=== PATIENT | female | born 1990 | race Caucasian/White ===

== ENCOUNTER 2017-12-16 01:29 | Emergency (ER) | payer OTHER, SELFPAY ==
--- NOTE | 2017-12-16 01:37 | ED_ITS ---
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 This reported by the patient that she did consume alcohol last evening. She reported drinking 7 beers. She did state that she took 100 mg of trazodone which is less than her normal 150 mg that she takes to sleep. She states that she cannot sleep at night without the trazodone. Despite drinking she still cannot fall asleep but she states that she took less than her normal dose. She states that she was brought here by members of the command after her she reports that they attempted to contact her earlier in the evening however she was asleep and since the could not reach her they came to find her and brought her here. Patient states she does have a history of PTSD. She states that she occasionally has thoughts of suicide. She states she has tried to hurt herself in the past. She states that currently she is not suicidal. She states she did not take the trazodone in the alcohol to try to kill herself. She states that she does not feel like she needs admitted to the hospital. She has never been admitted to the hospital in the past. She states that she does feel depressed but this is not new for her. She does live at home alone. She states she does feel safe at home. Related Data Allergies Allergy/AdvReac Type Severity Reaction Status Date / Time No Known Drug Allergies Allergy Verified 12/16/17 01:39 Review of Systems Constitutional Denies headache(s) ENT Ears, Nose, Mouth, and Throat: Denies headache(s) Cardiovascular Denies chest pain and Denies dyspnea Respiratory Denies dyspnea Gastrointestinal Gastrointestinal: Denies abdominal pain Musculoskeletal Denies myalgias and Denies arthralgias Integumentary/Breasts Denies rash Neurologic Denies confusion and Denies headache(s) Psychiatric Denies anxiety, Denies confusion, Reports depression, Denies irritability and Denies suicidal ideation Hematologic/Lymphatic Denies easy bleeding [facility] Medical History PTSD (post-traumatic stress disorder) (Acute) Surgical History No pertinent past surgical history (Acute) Social History Smoking Status: Never smoker Exam Initial Vital Signs Initial Vital Signs: Vital Signs Pulse Rate 88 12/16/17 01:39 Respiratory Rate 14 12/16/17 01:39 Blood Pressure 124/82 H 12/16/17 01:39 Pulse Oximetry 99 12/16/17 01:39 Const General: cooperative, healthy appearing, comfortable, well developed, well groomed and No acute distress Orientation: alert, awake and oriented x3 HENMT Head: normal to inspection and normocephalic Resp Effort & Inspection: normal respiratory effort Skin Lesions: no lesions Rashes: no rashes Neuro General: alert, awake and oriented x3 Cognition: normal cognition Speech: speech normal Gait: normal gait Motor: muscle tone normal throughout Extrem General: normal to inspection and full ROM Psych Appearance: grossly normal and well kempt Mental Status: mental status grossly normal Mood: congruent mood Affect: normal affect Attitude: cooperative Thought Process: normal Thought Content: normal Judgment: judgment good Scores GCS [place] coma scale eye opening: Spontaneous [place] coma scale verbal response: Orientated [place] coma scale motor response: Obey commands [place] coma scale total score: 15 Course Vital Signs - 8 hr 12/16/17 01:39 Pulse Rate 88 Respiratory Rate 14 Blood Pressure 124/82 H Pulse Oximetry 99 Medical Decision Making [facility] Narrative Medical decision making narrative: Patient was alert and oriented x3. Had a GCS of 15. She did state that she drank alcohol last evening but states she only took 100 mg of her trazodone. She states that she frequently has thoughts of hurting herself but is not currently having those thoughts. She states she is currently depressed. Does have a follow up with her mental health provider next Tuesday. She stated that she did not need admitted to the hospital. She denied any other toxic ingestions. My opinion had the capacity to make decisions. I was able to talk with 2 members of her command that brought her in this evening. They stated that for some time now she has expressed and exhibited depressive like symptoms. They state that they were concerned tonight because they thought that she took more trazodone than what she was admitting to. Seeing how the patient is alert and oriented x3 and is not expressing any current suicidal thoughts and states that she feels safe at home patient does not meet criteria to be involuntarily admitted to the hospital. Patient states she does not feel like she needs admitted to the hospital. After discussion with the patient and members of her command we will discharge the patient under her command supervision to be observed overnight and then they were instructed that she needed to call the mental health department tomorrow for follow-up. The patient was instructed that she should not take the trazodone and drink alcohol at the same time. She was instructed that she could return to the emergency department at any time if she felt like she needed to. She expressed understanding and agreement with plan. Her command members also expressed understanding and agreement. Discharge Plan Departure Patient Disposition: Home Clinical Impression: Alcoholic intoxication, Post traumatic stress disorder, Adjustment disorder Discharge Date/Time: 12/16/17 02:14 Instructions: Depression, Adjustment Disorder Activity Restrictions/Additional Instructions: Your being released to your LPO and division officer. No driving for the next 24 hr or in the future if you partake and intoxicating substances. You are to be watched tonight by your command. Highly recommend that you be seen by mental health [place] [employer] [place] tomorrow. You may return to the emergency department at any point for new or worsening symptoms.
[2017-12-16 01:39] VITALS: BP 124/82; PULSE 88; RESP 14; O2SAT 99; BMI 23.1
== END 2017-12-16 02:14 | disposition home or self-care (01) ==
PROVIDERS: Emergency Provider Emergency Medicine
DX: F10.929 Alcohol use, unspecified with intoxication, unspecified (principal); F43.10 Post-traumatic stress disorder, unspecified
CPT/HCPCS: 99282

== ENCOUNTER 2017-12-17 20:31 | Emergency (ER) | payer OTHER, SELFPAY ==
[2017-12-17 20:39] VITALS: BP 146/83; PULSE 99; RESP 18; TEMP 37.1; O2SAT 100; BMI 24.0
--- NOTE | 2017-12-17 20:48 | ED.ANXIETY ---
HPI - Anxiety General Chief Complaint: Anxiety Stated Complaint: PANIC ATTACK Time Seen by Provider: 12/17/17 20:41 Source: patient Mode of arrival: ambulatory Limitations: no limitations History of Present Illness HPI narrative: Patient is a 27-year-old female who I evaluated here in the emergency department a couple days ago after being brought in by her command for concerns of alcohol and trazodone overdose. At that time patient was discharged home with her command. Patient states she did follow up with her mental health provider the next day and the decision was made at that time for her to stay with a friend. This friend is with her today in the emergency department. Patient and the friend states that they were having a good day today. They state that they were at [employer] when the patient says that she had a sudden onset of panic attacks. She states that she has had panic attacks in the past. This feels like prior panic attack. She denies any alcohol or drug use. Does not have any medication for panic attacks. Came into the emergency department for evaluation. Related Data Previous Rx's Medication Instructions Recorded lorazepam [Ativan] 1 mg PO BID-TID PRN #10 tab 12/17/17 Allergies Allergy/AdvReac Type Severity Reaction Status Date / Time No Known Drug Allergies Allergy Verified 12/16/17 01:39 Review of Systems Constitutional Denies fatigue and Denies fever(s) Cardiovascular Denies chest pain and Denies dyspnea Respiratory Denies dyspnea Gastrointestinal Gastrointestinal: Reports abdominal pain (She does report bilateral lower abdominal pain which she states that she gets because of muscle tension during her anxiety), Denies diarrhea, Denies nausea and Denies vomiting Genitourinary Denies dysuria Musculoskeletal Reports back pain (Lower back pain) Integumentary/Breasts Denies lesions and Denies rash Psychiatric Reports anxiety, Reports depression, Reports panic attacks and Denies homicidal ideation Endocrine Denies fatigue [facility] Medical History Anxiety (Acute) PTSD (post-traumatic stress disorder) (Acute) Surgical History No pertinent past surgical history (Acute) Social History Smoking Status: Never smoker Exam Initial Vital Signs Initial Vital Signs: Vital Signs Temperature 98.7 F 12/17/17 20:39 Pulse Rate 99 H 12/17/17 20:39 Respiratory Rate 18 12/17/17 20:39 Blood Pressure 146/83 H 12/17/17 20:39 Pulse Oximetry 100 12/17/17 20:39 Const General: cooperative, healthy appearing, well developed, well groomed and No acute distress Orientation: alert, awake and oriented x3 Resp Effort & Inspection: normal respiratory effort GI Inspection: non-distended Palpation: soft, No firm and tender (Bilateral lower abdominal tenderness without rebound or guarding) Back/Spine/Pelvis Other: Bilateral lower lumbar tenderness without step-off deformity Skin Lesions: no lesions Rashes: no rashes Neuro General: alert, awake and oriented x3 Extrem General: capillary refill normal Psych Appearance: grossly normal and well kempt Course Orders Ordered: Discontinued Medications Ibuprofen (Advil) 800 mg PO NOW ONE Stop: 12/17/17 22:09 Last Admin: 12/17/17 22:18 Dose: 800 mg Lorazepam (Ativan) 1 mg PO NOW ONE Stop: 12/17/17 20:49 Last Admin: 12/17/17 20:54 Dose: 1 mg Lorazepam (Ativan) 1 mg PO NOW ONE Stop: 12/17/17 22:09 Last Admin: 12/17/17 22:18 Dose: 1 mg Ondansetron HCl (Zofran Odt) 4 mg PO NOW ONE Stop: 12/17/17 21:18 Last Admin: 12/17/17 21:20 Dose: 4 mg Vital Signs - 8 hr 12/17/17 20:39 12/17/17 22:21 12/17/17 22:59 Temperature 98.7 F 98.2 F Pulse Rate 99 H 78 62 Respiratory Rate 18 16 16 Blood Pressure 146/83 H 125/76 H Blood Pressure [Left Arm] 122/67 H Pulse Oximetry 100 98 97 MDM - Anxiety MDM Narrative Medical decision making narrative: Patient received 2 doses of Ativan here in the emergency department and she states that it improved her anxiety. She has with her friend and the plan is for her to be discharged with her friend in a follow up with her mental health department on Tuesday morning. Patient is taking her other medications. Patient agrees that her lower abdominal pain and lower back pain as the result of muscle tension secondary to the panic attack. Will hold on further workup about for right now. She was given an anti-inflammatory here in the ER. Will send home with a short prescription for the Ativan. She was given return precautions. She expressed understanding and agreement with plan. Discharge Plan Departure Patient Disposition: Home Clinical Impression: Acute anxiety Discharge Date/Time: 12/17/17 23:00 Interventions: ED Discharge Assessment Last Done: 12/17/17 22:59 Instructions: Anxiety Disorders, Anxiety and Panic Attacks (Alternative Therapy) Activity Restrictions/Additional Instructions: Recommend no alcohol intake. Take the prescription that you were given tonight as directed. Follow all of the plans that you have set up with your mental health provider and staying with her friend over the weekend. You may return to the emergency department at any point for new or worsening symptoms Prescriptions: New lorazepam [Ativan] 1 mg tablet 1 mg PO BID-TID PRN (Reason: anxiety) Qty: 10 RF: 0
[2017-12-17] MEDS: LORazepam 1 MG TABLET PO ×2 (20:54→22:18)
[2017-12-17] MEDS: ONDANSETRON 4 MG ODT PO (21:20)
--- NOTE | 2017-12-17 21:20 | PC.NURSE ---
Pt still nauseous. Provider aware. administered ODT Zofran, per order.
[2017-12-17] MEDS: IBUPROFEN 400 MG TABLET 800 MG PO (22:18)
[2017-12-17 22:21] VITALS: BP 122/67; PULSE 78; RESP 16; O2SAT 98
--- NOTE | 2017-12-17 22:22 | PC.NURSE ---
Pt reports back pain 6/10 and still feeling really tense. Pt medicated per order with ativan and ibuprofen. Placed on continuous O2 sat monitor for safety.
[2017-12-17 22:59] VITALS: BP 125/76; PULSE 62; RESP 16; TEMP 36.8; O2SAT 97
== END 2017-12-17 23:00 | disposition home or self-care (01) ==
PROVIDERS: Emergency Provider Emergency Medicine
DX: F41.9 Anxiety disorder, unspecified (principal)
CPT/HCPCS: 99282; 99283

== ENCOUNTER 2018-04-16 18:35 | Emergency (ER) | payer OTHER, SELFPAY ==
[2018-04-16 18:37] VITALS: BP 122/75; PULSE 96; RESP 18; TEMP 37.1; O2SAT 100; BMI 24.9
[2018-04-16] MEDS: LORazepam 0.5 MG TABLET 1 MG PO ×2 (18:53→19:41)
[2018-04-16] MEDS: IBUPROFEN 400 MG TABLET PO (19:06)
--- NOTE | 2018-04-16 19:06 | ED_ITS ---
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 She is on multiple medications for PTSD. She is currently in the process of been medically boarded out of the [place]. She is here tonight due to an exacerbation of the PTSD. She feels anxiety. This is exacerbated by abdominal cramping. She has ovarian cysts and recently had a menstrual cycle, she is used to the current abdominal cramping she is experiencing. She has no associated nausea, vomiting or dysuria. With anxiety, she is somewhat tearful. She is having flashbacks to the combat event that is recurrent memory and her PTSD. She is unsure why the flashbacks exacerbated today. However, she does agree that the holidays may be a feature. She went home to [place] for [facility] but will not be going home for [place]. There is also an anniversary of a negative event in her life coming up soon. She did not elaborate on the event, but it seems like it is a big deal. She denies suicidal ideation or homicidal ideation. She is eating and drinking well. She sees a therapist on the [employer] [place] once weekly. Related Data Previous Rx's Medication Instructions Recorded lorazepam [Ativan] 1 mg PO BID-TID PRN #10 tab 12/17/17 Allergies Allergy/AdvReac Type Severity Reaction Status Date / Time No Known Drug Allergies Allergy Verified 04/16/18 18:48 Review of Systems Review of Systems All systems reviewed & are unremarkable except as noted in HPI and below Constitutional Denies chills, Denies fever(s), Denies lethargy and Denies weakness ENT Ears, Nose, Mouth, and Throat: Denies change in voice, Denies dizziness, Denies nasal congestion and Denies sore throat Cardiovascular Denies chest pain, Denies irregular heart rhythm, Denies lightheadedness, Denies palpitations, Denies dyspnea, Denies dyspnea on exertion and Denies orthopnea Respiratory Denies cough, Denies dyspnea, Denies dyspnea on exertion and Denies wheezing Gastrointestinal Gastrointestinal: Denies change in bowel habits, Denies diarrhea, Reports nausea , Denies vomiting and Reports other (Lower abdominal cramping) Genitourinary Denies dysuria Musculoskeletal Denies back pain Integumentary/Breasts Denies pruritus, Denies erythema and Denies rash Neurologic Denies dizziness and Denies weakness Psychiatric Reports anxiety, Denies panic attacks, Denies hallucinations, Denies homicidal ideation and Denies suicidal ideation Endocrine Denies palpitations Allergic/Immunologic Denies wheezing PFSH Medical History Anxiety (Acute) Ovarian cyst (Acute) PTSD (post-traumatic stress disorder) (Acute) Surgical History No pertinent past surgical history (Acute) Social History Smoking Status: Never smoker Exam Initial Vital Signs Initial Vital Signs: Vital Signs Temperature 98.8 F 04/16/18 18:37 Pulse Rate 96 H 04/16/18 18:37 Respiratory Rate 18 04/16/18 18:37 Blood Pressure 122/75 04/16/18 18:37 Pulse Oximetry 100 04/16/18 18:37 Const General: cooperative, healthy appearing, well developed, well groomed and anxious Nutritional Appearance: well nourished Orientation: alert, awake, oriented x3 and not confused HENMT Head: normocephalic and atraumatic Ears: TM's normal bilaterally Nose: external nose normal Face and sinus: face symmetric Mouth: oral mucosae normal and moist mucous membranes Throat: posterior oropharynx normal Eyes Pupils: PERRL EOM: EOM intact bilaterally Neck Neck: trachea midline and supple Thyroid: thyroid normal Resp Effort & Inspection: normal respiratory effort, able to speak in complete sentences, no respiratory distress and no use of accessory muscles Auscultation: clear to auscultation bilaterally, no rales, no rhonchi and no wheezes Cardio Rate: regular rate Rhythm: regular rhythm Heart Sounds: no click, no gallops, no murmurs and no rubs Pulses: normal peripheral pulses GI Inspection: non-distended Palpation: soft, no hepatosplenomegaly and tender Auscultation: normal bowel sounds Back/Spine/Pelvis Back: No CVA tenderness Skin General: no rashes or lesions noted Neuro General: alert, oriented x3, gait normal and no focal motor deficits Speech: speech normal Extrem General: full ROM and no clubbing, cyanosis or edema Psych Speech and Movement: speech and movement normal Mood: anxious mood Affect: sad Attitude: cooperative Thought Process: normal Thought Content: no delusions, no hallucinations, no homicidality and suicidality Judgment: fair Course Orders Ordered: Discontinued Medications Ibuprofen (Advil) 400 mg PO NOW ONE Stop: 04/16/18 19:05 Last Admin: 04/16/18 19:06 Dose: 400 mg Lorazepam (Ativan) 1 mg PO NOW ONE Stop: 04/16/18 18:53 Last Admin: 04/16/18 18:53 Dose: 1 mg Lorazepam (Ativan) 1 mg PO NOW ONE Stop: 04/16/18 19:23 Last Admin: 04/16/18 19:41 Dose: 1 mg Vital Signs - 8 hr 04/16/18 18:37 04/16/18 19:50 Temperature 98.8 F Pulse Rate 96 H 67 Respiratory Rate 18 14 Blood Pressure 122/75 113/68 Pulse Oximetry 100 100 MDM - Anxiety MDM Narrative Medical decision making narrative: The patient knows she feels better after the Ativan. The anxiety has improved, as has the and nausea abdominal discomfort. She is on multiple medications for treatment of the PTSD. She was given an additional Ativan for tonight if necessary, and advised follow-up with her medical team tomorrow. Discharge Plan Departure Patient Disposition: Home Clinical Impression: Acute anxiety Discharge Date/Time: 04/16/18 19:52 Interventions: ED Discharge Assessment Last Done: 04/16/18 19:50 Instructions: Anxiety Disorders Activity Restrictions/Additional Instructions: Continue your regular prescribed medications. Ativan, 1 mg at night, to help with sleep and relaxation. Follow-up with your mental health provider as scheduled this week, go to sick call tomorrow morning if you're not feeling better. Return here if necessary. Prescriptions: No Action lorazepam [Ativan] 1 mg tablet 1 mg PO BID-TID PRN (Reason: anxiety) Qty: 10 RF: 0
[2018-04-16 19:50] VITALS: BP 113/68; PULSE 67; RESP 14; O2SAT 100
== END 2018-04-16 19:52 | disposition home or self-care (01) ==
PROVIDERS: Emergency Provider Emergency Medicine
DX: F41.9 Anxiety disorder, unspecified (principal)
CPT/HCPCS: 99282; 99283

== ENCOUNTER 2018-05-25 23:08 | Emergency (ER) | payer OTHER, SELFPAY ==
[2018-05-25 23:12] VITALS: BP 113/79; PULSE 94; RESP 14; TEMP 36.9; O2SAT 96; BMI 23.1
--- NOTE | 2018-05-26 00:16 | ED_ITS ---
HPI - Anxiety General Chief Complaint: Anxiety Stated Complaint: having ptsd flashback Time Seen by Provider: 05/26/18 00:16 Source: patient Mode of arrival: ambulatory Limitations: no limitations History of Present Illness HPI narrative: The patient is active duty in the [employer]. She has associated PTSD. She is on the care of Psychiatry. She is on multiple medications. She had a confrontation at work today. She was home earlier, she had a couple beers in the afternoon, about 4:00 p.m.. She does not drink even that much. Later in the day she had a PTSD attack. She remembers hiding in the closet, but in no further details. At 1 point she punched a cup pictures. She had a little bleed bleeding on her knuckles, she has full range of motion both hands without large lacerations, swelling or significant injury. She has no chest pain, or dyspnea. She is a little sleepy, but has a fear of recurrent PST attack. despite being sleepy she still describes herself is anxious. She has no thoughts of suicidal or homicidal ideation. She has been compliant with her medications. She is compliant with ongoing care. She has no recent illness. Other than the PTSD symptoms, she has been well. Related Data Home Medications Medication Instructions Recorded Confirmed clonazepam 0.5 mg PO BID 05/25/18 05/25/18 clonidine HCl 0.1 mg PO BID 05/25/18 05/25/18 duloxetine [Cymbalta] 60 mg PO DAILY 05/25/18 05/25/18 levothyroxine [Levoxyl] 25 mcg PO DAILY 05/25/18 05/25/18 trazodone 100 mg PO DAILY 05/25/18 05/25/18 Previous Rx's Medication Instructions Recorded lorazepam [Ativan] 1 mg PO BID-TID PRN #10 tab 12/17/17 Allergies Allergy/AdvReac Type Severity Reaction Status Date / Time No Known Drug Allergies Allergy Verified 05/25/18 23:24 Review of Systems Review of Systems ROS Unobtainable: All systems reviewed & are unremarkable except as noted in HPI and below Constitutional Denies body ache(s), Denies fever(s), Denies poor appetite and Reports other ( No recent illness) Eyes Denies change in vision Cardiovascular Denies dyspnea and Denies dyspnea on exertion Respiratory Denies cough, Denies dyspnea, Denies dyspnea on exertion and Denies wheezing Gastrointestinal Gastrointestinal: Denies abdominal pain, Denies change in bowel habits, Denies diarrhea, Denies nausea and Denies vomiting Musculoskeletal Reports other ( no focal weakness) Allergic/Immunologic Denies wheezing [facility] Medical History Anxiety (Acute) Ovarian cyst (Acute) PTSD (post-traumatic stress disorder) (Acute) Social History Smoking Status: Never smoker Exam Initial Vital Signs Initial Vital Signs: Vital Signs Temperature 98.4 F 05/25/18 23:12 Pulse Rate 94 H 05/25/18 23:12 Respiratory Rate 14 05/25/18 23:12 Blood Pressure 113/79 05/25/18 23:12 Pulse Oximetry 96 05/25/18 23:12 Const General: cooperative and well developed Nutritional Appearance: well nourished Orientation: alert, awake, oriented x3 and not confused HENCA Head: normocephalic and atraumatic Ears: external ears normal and TM's normal bilaterally Nose: external nose normal and No nasal discharge Face and sinus: sinuses nontender, face symmetric, no sinus tenderness and No dry mucous membranes Mouth: oral mucosae normal and moist mucous membranes Teeth and gingiva: dentition normal Throat: tonsils normal and uvula midline Eyes General: appearance normal, both eyes and all related structures Eyelids: eyelids normal Conjunctivae: conjunctivae normal Sclera: sclerae normal Pupils: PERRL EOM: EOM intact bilaterally Resp Effort & Inspection: normal respiratory effort, able to speak in complete sentences, no respiratory distress and no use of accessory muscles Auscultation: clear to auscultation bilaterally, no rales, no rhonchi and no wheezes Cardio Rate: regular rate Rhythm: regular rhythm Heart Sounds: no click, no gallops, no murmurs and no rubs Pulses: normal peripheral pulses GI Inspection: non-distended Palpation: soft, no hepatosplenomegaly, No guarding, No pulsatile mass and No tender Auscultation: normal bowel sounds Neuro General: alert, oriented x3, gait normal and no focal motor deficits Speech: speech normal Psych Appearance: well kempt and other ( mildly anxious) Mental Status: mental status grossly normal Attitude: cooperative Thought Content: normal, no delusions, no hallucinations, no homicidality and suicidality Judgment: judgment good Course Course Narrative: 01:33. The patient received Ativan earlier. She was sound asleep, symptoms have improved. She will be discharged home, she is not suicidal or homicidal. She is on appropriate medications. She already has appointment scheduled with her provider tomorrow. Orders Ordered: Discontinued Medications Lorazepam (Ativan) 1 mg PO NOW ONE Stop: 05/26/18 00:29 Last Admin: 05/26/18 00:38 Dose: 1 mg Vital Signs - 8 hr 05/25/18 23:12 05/26/18 01:37 Temperature 98.4 F 98.3 F Pulse Rate 94 H 92 H Respiratory Rate 14 18 Blood Pressure 113/79 111/75 Pulse Oximetry 96 98 Discharge Plan Departure Patient Disposition: Home Clinical Impression: Acute anxiety, Chronic post-traumatic stress disorder (PTSD) after combat Discharge Date/Time: 05/26/18 01:38 Interventions: ED Discharge Assessment Last Done: 05/26/18 01:37 Instructions: DI for Anxiety -- Adult Activity Restrictions/Additional Instructions: Continue with her current medications. Follow up with her appointment as scheduled. Return to the ER as needed. Prescriptions: No Action lorazepam [Ativan] 1 mg tablet 1 mg PO BID-TID PRN (Reason: anxiety) Qty: 10 RF: 0 clonidine HCl 0.1 mg Tablet 0.1 mg PO BID RF: 0 clonazepam 0.5 mg Tablet 0.5 mg PO BID RF: 0 levothyroxine [Levoxyl] 25 mcg Tablet 25 mcg PO DAILY RF: 0 trazodone 100 mg Tablet 100 mg PO DAILY RF: 0 duloxetine [Cymbalta] 60 mg Capsule,Delayed Release(Dr/Ec) 60 mg PO DAILY RF: 0
[2018-05-26] MEDS: LORazepam 0.5 MG TABLET 1 MG PO (00:38)
--- NOTE | 2018-05-26 00:42 | PC.NURSE ---
Pt medicated per MAR. Pt requesting friends to come back and visit her. Friends brought to her room.
[2018-05-26 01:37] VITALS: BP 111/75; PULSE 92; RESP 18; TEMP 36.8; O2SAT 98
== END 2018-05-26 01:38 | disposition home or self-care (01) ==
PROVIDERS: Emergency Provider Emergency Medicine
DX: F41.9 Anxiety disorder, unspecified (principal); F43.11 Post-traumatic stress disorder, acute
CPT/HCPCS: 99282; 99283

== ENCOUNTER 2019-01-15 22:35 | Emergency (ER) | payer OTHER, SELFPAY ==
--- NOTE | 2019-01-15 22:46 | PC.NURSE ---
Pt checked in and then went to the bathroom in the lobby before I could see her. Pt remains in the bathroom with a friend. When I checked on them, they said that they're fine.
[2019-01-15 23:01] VITALS: BP 118/57; PULSE 82; RESP 16; TEMP 36.6; O2SAT 96; BMI 24.7
[2019-01-15] MEDS: ONDANSETRON 4 MG ODT SL (23:30)
[2019-01-15] MEDS: LORazepam 0.5 MG TABLET 1 MG PO (23:30)
--- NOTE | 2019-01-15 23:47 | PC.NURSE ---
Pt's friend came out to tell me that the patient asked her to tell me that she's been thinking about the suicide risk assessment questions and she wanted me to know that she has been struggling with that more than she let on. Friend reports that pt has been hospitalized in the past for SI, but no suicide attempts that she knows of. Friend states she will stay at bedside for safety. Pt states that she will not harm herself while in the ED.
--- NOTE | 2019-01-16 00:30 | PC.NURSE ---
Pt reports she is still very anxious after meds. Tearful. I feel like I'm about to have a panic attack. Pt updated to plan of care-- Dr Saucedo will be in to see her shortly. Pt agreeable.
--- NOTE | 2019-01-16 01:14 | ED_ITS ---
HPI - Psych <Gogo Saucedo MD - Last Filed: 01/18/19 19:37> General Chief Complaint: Psychiatric Symptoms Stated Complaint: POST TRAUMATIC STRESS DISORDER Time Seen by Provider: 01/15/19 23:52 Source: patient and other (friend) Mode of arrival: ambulatory Limitations: no limitations History of Present Illness HPI Narrative: Patient presents emergency department complaining of a flare-up o f her PTSD over the last couple of weeks. Patient states she has been having flashbacks and nightmares, and has been feeling intermittently suicidal. Patient states she is not sure if she is currently suicidal. Patient has PTSD due to multiple deployments, and states that she is going to be discharged from the in January, due to her PTSD. Patient states she has been treated on both an inpatient and an outpatient basis for this. She states she has a mental health provider through the [employer] [employer], and also uses modalities such as a room with therapy and service animal to help her with her anxiety and PTSD; however, the things have not been working recently. Patient states she is not on any chronic medications for PTSD, but has used Ativan the past for flares. She states that sometimes she is able to be successfully treated as an outpatient, but sometimes she has to go inpatient. She states she is not sure which category she is in at this time. The patient does complain of nausea that is associated with her PTSD flare-ups. Patient states she has been vomiting periodically. She admits to currently being nauseated. She denies any drugs, but does admit to drinking ?a couple beers? tonight. No other complaints at this time. Related Data Home Medications Medication Instructions Recorded Confirmed clonidine HCl 0.3 mg PO DAILY 05/25/18 01/16/19 levothyroxine [Levoxyl] 25 mcg PO DAILY 05/25/18 01/16/19 trazodone 100 - 300 mg PO BEDTIME 05/25/18 01/16/19 duloxetine 90 mg PO DAILY 01/16/19 01/16/19 ibuprofen 800 mg PO TID PRN 01/16/19 01/16/19 norelgestromin-ethin.estradiol 1 patch TOPICAL QWEEK 01/16/19 01/16/19 [Xulane] omeprazole 20 mg PO DAILY 01/16/19 01/16/19 propranolol 30 mg PO TID PRN 01/16/19 01/16/19 Allergies Allergy/AdvReac Type Severity Reaction Status Date / Time No Known Drug Allergies Allergy Verified 05/25/18 23:24 Review of Systems <Gogo Saucedo MD - Last Filed: 01/18/19 19:37> Review of Systems ROS Unobtainable: All systems reviewed & are unremarkable except as noted in HPI and below Constitutional Constitutional: Denies chills, Denies fatigue, Denies fever(s), Denies frequent falls, Denies lethargy and Denies weakness Eyes Eyes: Denies change in vision, Denies eye discharge, Denies irritation and Denies loss of vision ENT Ears, Nose, Mouth, and Throat: Denies change in voice, Denies dizziness, Denies neck pain, Denies sore throat and Denies throat swelling Cardiovascular Cardiovascular: Denies chest pain, Denies irregular heart rhythm, Denies lightheadedness, Denies palpitations, Denies dyspnea, Denies dyspnea on exertion and Denies orthopnea Respiratory Respiratory: Denies cough, Denies dyspnea, Denies dyspnea on exertion and Denies wheezing Gastrointestinal Gastrointestinal: Denies abdominal pain, Denies change in bowel habits, Denies diarrhea, Denies nausea and Denies vomiting Genitourinary Genitourinary: Denies hematuria, Denies flank pain, Denies urinary incontinence and Denies urinary urgency Musculoskeletal Musculoskeletal: Denies back pain, Denies muscle weakness, Denies neck pain, Denies numbness and Denies tingling Integumentary/Breasts Skin/Breast: Denies pruritus, Denies erythema, Denies rash and Denies wounds Neurologic Neurologic: Denies behavioral changes, Denies confusion, Denies dizziness, Denies frequent falls, Denies loss of vision, Denies numbness, Denies tingling and Denies weakness Psychiatric Psychiatric: Reports anxiety, Denies behavioral changes, Denies confusion, Denies depression, Reports panic attacks, Denies homicidal ideation and Reports suicidal ideation Endocrine Endocrine: Denies fatigue, Denies flushing and Denies palpitations Hematologic/Lymphatic Hematologic/Lymphatic: Denies easy bruising Allergic/Immunologic Allergic/Immunologic: Denies urticaria, Denies throat swelling and Denies wheezing PFSH <Gogo Saucedo MD - Last Filed: 01/18/19 19:37> Medical History Anxiety (Acute) Ovarian cyst (Acute) PTSD (post-traumatic stress disorder) (Acute) Surgical History No pertinent past surgical history (Acute) Social History Smoking Status: Never smoker Social History Smoking Status: Never smoker Exam <Gogo Saucedo MD - Last Filed: 01/18/19 19:37> Initial Vital Signs Initial Vital Signs: Vital Signs Temperature 97.8 F 01/15/19 23:01 Pulse Rate 82 01/15/19 23:01 Respiratory Rate 16 01/15/19 23:01 Blood Pressure 118/57 L 01/15/19 23:01 Pulse Oximetry 96 01/15/19 23:01 Const General: cooperative and well developed Nutritional Appearance: well nourished Orientation: alert, awake, oriented x3 and not confused [facility] Head: normocephalic and atraumatic Ears: external ears normal Nose: external nose normal and No nasal discharge Face and sinus: face symmetric and No dry mucous membranes Mouth: oral mucosae normal and moist mucous membranes Teeth and gingiva: dentition normal Eyes General: appearance normal, both eyes and all related structures Eyelids: eyelids normal Conjunctivae: conjunctivae normal Sclera: sclerae normal Pupils: PERRL EOM: EOM intact bilaterally Neck Neck: normal visual inspection, trachea midline, No lymphadenopathy, No midline deformity and No JVD Lymphatic: No lymphedema Chest Chest: normal inspection of the chest Resp Effort & Inspection: normal respiratory effort, able to speak in complete sentences, no respiratory distress and no use of accessory muscles Auscultation: clear to auscultation bilaterally, no rales, no rhonchi and no wheezes Cardio Rate: regular rate Rhythm: regular rhythm Heart Sounds: no click, no gallops, no murmurs and no rubs Pulses: normal peripheral pulses GI Inspection: non-distended Palpation: soft, no hepatosplenomegaly, No guarding, No pulsatile mass and No tender Back/Spine/Pelvis Back: No CVA tenderness Cervical Spine: cervical ROM normal and No pain with cervical ROM Thoracic/Lumbar Spine: thoracic and lumbar spine normal to inspection Skin General: no rashes or lesions noted, No jaundice and No petechiae Neuro General: alert, oriented x3, gait normal and no focal motor deficits Speech: speech normal Extrem General: full ROM, no clubbing, cyanosis or edema, no pedal edema and no calf tenderness Psych Appearance: well kempt Mental Status: mental status grossly normal Mood: anxious mood Affect: sad (Patient is tearful.) Attitude: cooperative Thought Content: normal and suicidality Judgment: judgment good <Nicki Loza DO - Last Filed: 01/16/19 18:57> Initial Vital Signs Initial Vital Signs: Vital Signs Temperature 97.8 F 01/15/19 23:01 Pulse Rate 82 01/15/19 23:01 Respiratory Rate 16 01/15/19 23:01 Blood Pressure 118/57 L 01/15/19 23:01 Pulse Oximetry 96 01/15/19 23:01 Course <Gogo Saucedo MD - Last Filed: 01/18/19 19:37> Course Course Narrative: Patient was worked up with laboratory studies and treated symptomatically with Zofran, Ativan, and IV fluids. She has opted to wait in the emergency department for social work consult and possible transfer to inpatient [facility]. Patient signed out to Dr. Loza, pending social work evaluation and disposition of the patient. Orders Ordered: Discontinued Medications Sodium Chloride (Normal Saline 0.9%) 1,000 mls @ 1,000 mls/hr IV BOLUS ONE Stop: 01/16/19 02:09 Last Infusion: 01/16/19 02:57 Dose: 0 mls/hr Documented by: Admin: 01/16/19 01:48 Dose: 1,000 mls/hr Documented by: DIMA Ketorolac Tromethamine (Toradol) 30 mg IV NOW ONE Stop: 01/16/19 06:48 Last Admin: 01/16/19 07:36 Dose: 30 mg Documented by: CASSY Lorazepam (Ativan) 1 mg PO NOW ONE Stop: 01/15/19 23:16 Last Admin: 01/15/19 23:30 Dose: 1 mg Documented by: DIMA Lorazepam (Ativan) 1 mg IV NOW ONE Stop: 01/16/19 01:11 Last Admin: 01/16/19 01:49 Dose: 1 mg Documented by: DIMA Lorazepam (Ativan) 1 mg PO NOW ONE Stop: 01/16/19 07:32 Last Admin: 01/16/19 07:36 Dose: 1 mg Documented by: CASSY Lorazepam (Ativan) 1 mg PO NOW ONE Stop: 01/16/19 12:18 Last Admin: 01/16/19 12:27 Dose: 1 mg Documented by: MICHAEL Ondansetron HCl (Zofran Odt) 4 mg SL NOW ONE Stop: 01/15/19 23:17 Last Admin: 01/15/19 23:30 Dose: 4 mg Documented by: DIMA Ondansetron HCl (Zofran) 4 mg IV NOW ONE Stop: 01/16/19 01:11 Last Admin: 01/16/19 01:49 Dose: 4 mg Documented by: DIMA Ondansetron HCl (Zofran) 4 mg IV NOW ONE Stop: 01/16/19 07:33 Last Admin: 01/16/19 07:36 Dose: 4 mg Documented by: CASSY Propranolol HCl (Inderal) 30 mg PO NOW ONE Stop: 01/16/19 08:16 Last Admin: 01/16/19 08:34 Dose: 30 mg Documented by: CASSY Vital Signs Vital signs: Vital Signs - 8 hr 01/16/19 14:02 Temperature 98.3 F Pulse Rate 76 Respiratory Rate 16 Blood Pressure [Left Arm] 118/61 Pulse Oximetry 98 <Nicki Loza, - Last Filed: 01/16/19 18:57> Orders Ordered: Discontinued Medications Sodium Chloride (Normal Saline 0.9%) 1,000 mls @ 1,000 mls/hr IV BOLUS ONE Stop: 01/16/19 02:09 Last Infusion: 01/16/19 02:57 Dose: 0 mls/hr Documented by: Admin: 01/16/19 01:48 Dose: 1,000 mls/hr Documented by: DIMA Ketorolac Tromethamine (Toradol) 30 mg IV NOW ONE Stop: 01/16/19 06:48 Last Admin: 01/16/19 07:36 Dose: 30 mg Documented by: CASSY Lorazepam (Ativan) 1 mg PO NOW ONE Stop: 01/15/19 23:16 Last Admin: 01/15/19 23:30 Dose: 1 mg Documented by: DIMA Lorazepam (Ativan) 1 mg IV NOW ONE Stop: 01/16/19 01:11 Last Admin: 01/16/19 01:49 Dose: 1 mg Documented by: DIMA Lorazepam (Ativan) 1 mg PO NOW ONE Stop: 01/16/19 07:32 Last Admin: 01/16/19 07:36 Dose: 1 mg Documented by: CASSY Lorazepam (Ativan) 1 mg PO NOW ONE Stop: 01/16/19 12:18 Last Admin: 01/16/19 12:27 Dose: 1 mg Documented by: MCIHAEL Ondansetron HCl (Zofran Odt) 4 mg SL NOW ONE Stop: 01/15/19 23:17 Last Admin: 01/15/19 23:30 Dose: 4 mg Documented by: DIMA Ondansetron HCl (Zofran) 4 mg IV NOW ONE Stop: 01/16/19 01:11 Last Admin: 01/16/19 01:49 Dose: 4 mg Documented by: DIMA Ondansetron HCl (Zofran) 4 mg IV NOW ONE Stop: 01/16/19 07:33 Last Admin: 01/16/19 07:36 Dose: 4 mg Documented by: CASSY Propranolol HCl (Inderal) 30 mg PO NOW ONE Stop: 01/16/19 08:16 Last Admin: 01/16/19 08:34 Dose: 30 mg Documented by: CASSY Vital Signs Vital signs: Vital Signs - 8 hr 01/16/19 14:02 Temperature 98.3 F Pulse Rate 76 Respiratory Rate 16 Blood Pressure [Left Arm] 118/61 Pulse Oximetry 98 MDM - Psych <Gogo Saucedo MD - Last Filed: 01/18/19 19:37> Medical Records Attestation: I reviewed the patient's medical records. Lab Data Attestation: I reviewed the patient's lab results. Result diagrams: 01/16/19 01:55 01/16/19 01:55 Labs: Lab Results 01/16/19 01/16/19 01/16/19 Range/Units 01:20 01:55 01:55 WBC 6.9 (4.5-11.0) X10^3/uL RBC 4.05 (4.0-5.2) X10^6/uL Hgb 13.2 (12.0-16.0) g/dL Hct 39.0 (36-46) % MCV 96.3 (80-100) fL MCH 32.5 (26-34) PG MCHC 33.7 (30-36) % RDW 12.8 (11.6-14.8) % Plt Count 239 (150-400) X10^3/uL Neut % (Auto) 54.7 (50-75) % Lymph % (Auto) 38.0 (25-40) % Haakon % (Auto) 4.8 (3-14) % Eos % (Auto) 2.1 (2-4) % Baso % (Auto) 0.4 (0-2) % Neut # (Auto) 3800 (6516-9513) /uL Lymph # (Auto) 2600 (3340-6734) /uL Haakon # (Auto) 300 (0-900) /uL Eos # (Auto) 100 (0-450) /uL Baso # (Auto) 0 (0-100) /uL Sodium 144 (137-145) mmol/L Potassium 4.3 (3.4-5.1) mmol/L Chloride 109 H (98-107) mmol/L Carbon Dioxide 24 (22-32) mmol/L BUN 13 (7-17) mg/dL Creatinine 0.70 (0.52-1.04) mg/dL Estimated GFR > 60.0 (>60) mL/min BUN/Creatinine Ratio 18.6 (6-22) Glucose 84 (70-100) mg/dL Calcium 8.8 (8.4-10.2) mg/dL Total Bilirubin 0.3 (0.2-1.3) mg/dL AST 31 (14-36) IU/L ALT 35 (9-52) IU/L Alkaline Phosphatase 65 (38-126) U/L Total Protein 6.6 (6.3-8.2) g/dL Albumin 4.3 (3.5-5.0) g/dL Globulin 2.3 (1.7-4.1) g/dL Albumin/Globulin Ratio 1.9 (1.0-2.8) Lipase (23-300) U/L TSH (0.47-4.68) uIU/mL Urine Color Urine Appearance Urine pH (4.5-8.0) Ur Specific [place] (1.000-1.035) Urine Protein (Negative) Urine Glucose (UA) (Negative) g/dL Urine Ketones (NEGATIVE) Urine Occult Blood (Negative) Urine Nitrate (Negative) Urine Bilirubin (NEGATIVE) Urine Urobilinogen (0.2) E.U./dL Ur Leukocyte Esterase (NEGATIVE) Urine Opiates Screen Negative (Negative) Ur Oxycodone Screen Negative (Negative) Urine Methadone Screen Negative (Negative) Ur Barbiturates Screen Negative (Negative) U Tricyclic Antidepress Negative (Negative) Ur Phencyclidine Scrn Negative (Negative) Ur Amphetamines Screen Negative (Negative) U Methamphetamines Scrn Negative (Negative) Ur MDMA Scrn (Ecstasy) Negative (Negative) U Benzodiazepines Scrn Positive H (Negative) Urine Cocaine Screen Negative (Negative) U Marijuana (THC) Screen Negative (Negative) Ethyl Alcohol 124 H ( - 10) mg/dL 01/16/19 01/16/19 01/16/19 Range/Units 01:55 01:55 08:50 WBC (4.5-11.0) X10^3/uL RBC (4.0-5.2) X10^6/uL Hgb (12.0-16.0) g/dL Hct (36-46) % MCV (80-100) fL MCH (26-34) PG MCHC (30-36) % RDW (11.6-14.8) % Plt Count (150-400) X10^3/uL Neut % (Auto) (50-75) % Lymph % (Auto) (25-40) % Haakon % (Auto) (3-14) % Eos % (Auto) (2-4) % Baso % (Auto) (0-2) % Neut # (Auto) (4703-0362) /uL Lymph # (Auto) (5642-4852) /uL Haakon # (Auto) (0-900) /uL Eos # (Auto) (0-450) /uL Baso # (Auto) (0-100) /uL Sodium (137-145) mmol/L Potassium (3.4-5.1) mmol/L Chloride (98-107) mmol/L Carbon Dioxide (22-32) mmol/L BUN (7-17) mg/dL Creatinine (0.52-1.04) mg/dL Estimated GFR (>60) mL/min BUN/Creatinine Ratio (6-22) Glucose (70-100) mg/dL Calcium (8.4-10.2) mg/dL Total Bilirubin (0.2-1.3) mg/dL AST (14-36) IU/L ALT (9-52) IU/L Alkaline Phosphatase (38-126) U/L Total Protein (6.3-8.2) g/dL Albumin (3.5-5.0) g/dL Globulin (1.7-4.1) g/dL Albumin/Globulin Ratio (1.0-2.8) Lipase 190 (23-300) U/L TSH 1.89 (0.47-4.68) uIU/mL Urine Color Yellow Urine Appearance Clear Urine pH 5.0 (4.5-8.0) Ur Specific [place] 1.010 (1.000-1.035) Urine Protein Negative (Negative) Urine Glucose (UA) Negative (Negative) g/dL Urine Ketones Trace H (NEGATIVE) Urine Occult Blood Negative (Negative) Urine Nitrate Negative (Negative) Urine Bilirubin Negative (NEGATIVE) Urine Urobilinogen 0.2 (0.2) E.U./dL Ur Leukocyte Esterase Negative (NEGATIVE) Urine Opiates Screen (Negative) Ur Oxycodone Screen (Negative) Urine Methadone Screen (Negative) Ur Barbiturates Screen (Negative) U Tricyclic Antidepress (Negative) Ur Phencyclidine Scrn (Negative) Ur Amphetamines Screen (Negative) U Methamphetamines Scrn (Negative) Ur MDMA Scrn (Ecstasy) (Negative) U Benzodiazepines Scrn (Negative) Urine Cocaine Screen (Negative) U Marijuana (THC) Screen (Negative) Ethyl Alcohol ( - 10) mg/dL Point of Care Testing Test Results Negative <Nicki Loza, - Last Filed: 01/16/19 18:57> Lab Data Attestation: I reviewed the patient's lab results. Labs: Lab Results 01/16/19 01/16/19 01/16/19 Range/Units 01:20 01:55 01:55 WBC 6.9 (4.5-11.0) X10^3/uL RBC 4.05 (4.0-5.2) X10^6/uL Hgb 13.2 (12.0-16.0) g/dL Hct 39.0 (36-46) % MCV 96.3 (80-100) fL MCH 32.5 (26-34) PG MCHC 33.7 (30-36) % RDW 12.8 (11.6-14.8) % Plt Count 239 (150-400) X10^3/uL Neut % (Auto) 54.7 (50-75) % Lymph % (Auto) 38.0 (25-40) % Haakon % (Auto) 4.8 (3-14) % Eos % (Auto) 2.1 (2-4) % Baso % (Auto) 0.4 (0-2) % Neut # (Auto) 3800 (4853-0036) /uL Lymph # (Auto) 2600 (8769-5753) /uL Haakon # (Auto) 300 (0-900) /uL Eos # (Auto) 100 (0-450) /uL Baso # (Auto) 0 (0-100) /uL Sodium 144 (137-145) mmol/L Potassium 4.3 (3.4-5.1) mmol/L Chloride 109 H (98-107) mmol/L Carbon Dioxide 24 (22-32) mmol/L BUN 13 (7-17) mg/dL Creatinine 0.70 (0.52-1.04) mg/dL Estimated GFR > 60.0 (>60) mL/min BUN/Creatinine Ratio 18.6 (6-22) Glucose 84 (70-100) mg/dL Calcium 8.8 (8.4-10.2) mg/dL Total Bilirubin 0.3 (0.2-1.3) mg/dL AST 31 (14-36) IU/L ALT 35 (9-52) IU/L Alkaline Phosphatase 65 (38-126) U/L Total Protein 6.6 (6.3-8.2) g/dL Albumin 4.3 (3.5-5.0) g/dL Globulin 2.3 (1.7-4.1) g/dL Albumin/Globulin Ratio 1.9 (1.0-2.8) Lipase (23-300) U/L TSH (0.47-4.68) uIU/mL Urine Color Urine Appearance Urine pH (4.5-8.0) Ur Specific [place] (1.000-1.035) Urine Protein (Negative) Urine Glucose (UA) (Negative) g/dL Urine Ketones (NEGATIVE) Urine Occult Blood (Negative) Urine Nitrate (Negative) Urine Bilirubin (NEGATIVE) Urine Urobilinogen (0.2) E.U./dL Ur Leukocyte Esterase (NEGATIVE) Urine Opiates Screen Negative (Negative) Ur Oxycodone Screen Negative (Negative) Urine Methadone Screen Negative (Negative) Ur Barbiturates Screen Negative (Negative) U Tricyclic Antidepress Negative (Negative) Ur Phencyclidine Scrn Negative (Negative) Ur Amphetamines Screen Negative (Negative) U Methamphetamines Scrn Negative (Negative) Ur MDMA Scrn (Ecstasy) Negative (Negative) U Benzodiazepines Scrn Positive H (Negative) Urine Cocaine Screen Negative (Negative) U Marijuana (THC) Screen Negative (Negative) Ethyl Alcohol 124 H ( - 10) mg/dL 01/16/19 01/16/19 01/16/19 Range/Units 01:55 01:55 08:50 WBC (4.5-11.0) X10^3/uL RBC (4.0-5.2) X10^6/uL Hgb (12.0-16.0) g/dL Hct (36-46) % MCV (80-100) fL MCH (26-34) PG MCHC (30-36) % RDW (11.6-14.8) % Plt Count (150-400) X10^3/uL Neut % (Auto) (50-75) % Lymph % (Auto) (25-40) % Haakon % (Auto) (3-14) % Eos % (Auto) (2-4) % Baso % (Auto) (0-2) % Neut # (Auto) (9170-5610) /uL Lymph # (Auto) (4616-6662) /uL Haakon # (Auto) (0-900) /uL Eos # (Auto) (0-450) /uL Baso # (Auto) (0-100) /uL Sodium (137-145) mmol/L Potassium (3.4-5.1) mmol/L Chloride (98-107) mmol/L Carbon Dioxide (22-32) mmol/L BUN (7-17) mg/dL Creatinine (0.52-1.04) mg/dL Estimated GFR (>60) mL/min BUN/Creatinine Ratio (6-22) Glucose (70-100) mg/dL Calcium (8.4-10.2) mg/dL Total Bilirubin (0.2-1.3) mg/dL AST (14-36) IU/L ALT (9-52) IU/L Alkaline Phosphatase (38-126) U/L Total Protein (6.3-8.2) g/dL Albumin (3.5-5.0) g/dL Globulin (1.7-4.1) g/dL Albumin/Globulin Ratio (1.0-2.8) Lipase 190 (23-300) U/L TSH 1.89 (0.47-4.68) uIU/mL Urine Color Yellow Urine Appearance Clear Urine pH 5.0 (4.5-8.0) Ur Specific [place] 1.010 (1.000-1.035) Urine Protein Negative (Negative) Urine Glucose (UA) Negative (Negative) g/dL Urine Ketones Trace H (NEGATIVE) Urine Occult Blood Negative (Negative) Urine Nitrate Negative (Negative) Urine Bilirubin Negative (NEGATIVE) Urine Urobilinogen 0.2 (0.2) E.U./dL Ur Leukocyte Esterase Negative (NEGATIVE) Urine Opiates Screen (Negative) Ur Oxycodone Screen (Negative) Urine Methadone Screen (Negative) Ur Barbiturates Screen (Negative) U Tricyclic Antidepress (Negative) Ur Phencyclidine Scrn (Negative) Ur Amphetamines Screen (Negative) U Methamphetamines Scrn (Negative) Ur MDMA Scrn (Ecstasy) (Negative) U Benzodiazepines Scrn (Negative) Urine Cocaine Screen (Negative) U Marijuana (THC) Screen (Negative) Ethyl Alcohol ( - 10) mg/dL Point of Care Testing Test Results Negative MDM Narrative Medical decision making narrative: Patient signed out to myself by Dr. Saucedo, patient has history of PTSD, she has had increased anxiety and suicidal thoughts intermittently. She did not feel safe at home. She came in last night. She typically feels quite nauseated when she is having anxiety in her PTSD. Patient has had several doses of Zofran with some help. Lab work was reviewed noted she had a lipase which was ordered and is in normal range. Point core urine was also added on. Patient does have negative . Discussed with patient she is unsure if she needs placement or not, she is unsure about how she feels in terms of her safety. She does state that she takes propranolol daily Um it has been intermittent in the past but she has been taking it most recently and states she takes 30 mg usually in the morning. Discussed will go ahead and do a dose this morning. I discussed with patient plan for consultation with social work to discuss about possibly voluntary placement versus other options. On re-evaluation patient and I discussed that she would like to return home but she states that she is still having suicidal thoughts. When asked directly if she has a plan she states that she has multiple options available to her and has about this many times over the last year so she has multiple plans. When asked if she felt that she could return home and keep herself safe she does not answer yes. When asked directly if she would reach out for assistance or help if she felt that she was unsafe she also will not endorse [facility]enn[facility] for safety. When asked again directly if she would possibly go home and kill herself she says UT do that. Patient had this discussion and had continued conversation over about 10 or 15 minutes with her unable to contract or endorse for safety. Discussed with patient I do not feel that she is safe to return home. At this time she is voluntary but if she chose to leave the department I would detain her. I spoke with Dr. Nam at [facility] a 2nd time and discussed their evaluation and that I feel she needs to be hospitalized currently. He accepts for transfer, [facility] for transfer to [facility]. Discharge Plan Departure Patient Disposition: Xfer Psychiatric Hosp Clinical Impression: Suicidal ideation, Post traumatic stress disorder Discharge Date/Time: 01/16/19 16:21
[2019-01-16 01:40] LABS: Urine Amphetamines Negative (Negative); Urine Barbiturates Negative (Negative); Urine Benzodiazepines Positive (Negative); Urine Cocaine Negative (Negative); Urine MDMA Negative (Negative); Urine Methadone Negative (Negative); Urine Methamphetamines Negative (Negative); Urine Morphine/Opi cutoff 2000 Negative (Negative); Urine Oxycodone Negative (Negative); Urine Phencyclidine Negative (Negative); Urine Tetrahydrocannabinol Negative (Negative); Urine Tricyclic Antidepressant Negative (Negative)
[2019-01-16] MEDS: SODIUM CHLORIDE 0.9% 1,000 ML 1000 ML IV (01:48)
[2019-01-16] MEDS: ONDANSETRON 4 MG/2 ML INJ IV ×2 (01:49→07:36)
[2019-01-16] MEDS: LORazepam 2 MG/ML INJ 1 MG IV (01:49)
[2019-01-16 02:01] VITALS: BP 108/62; PULSE 84; RESP 15; O2SAT 98
[2019-01-16 02:16] LABS: Alanine Aminotransferase 35 IU/L (9-52); Albumin 4.3 g/dL (3.5-5.0); Albumin Globulin Ratio 1.9 (1.0-2.8); Alkaline Phosphatase 65 U/L (38-126); Aspartate Aminotransferase 31 IU/L (14-36); BUN Creatinine Ratio 18.6 (6-22); Bilirubin Total 0.3 mg/dL (0.2-1.3); Blood Urea Nitrogen 13 mg/dL (7-17); Calcium 8.8 mg/dL (8.4-10.2); Carbon Dioxide 24 mmol/L (22-32); Chloride 109 mmol/L (98-107); Estimated Glomerular Filt Rate > 60.0 mL/min (>60); Ethanol (ETOH) 124 mg/dL; Globulin 2.3 g/dL (1.7-4.1); Glucose 84 mg/dL (70-100); HEMOLYSIS < 15 (0-50); Potassium 4.3 mmol/L (3.4-5.1); Sodium 144 mmol/L (137-145); Total Protein 6.6 g/dL (6.3-8.2)
[2019-01-16 02:18] LABS: Add Manual Diff / Slide Review NO; Basophils Absolute Auto 0 /uL (0-100); Basophils Percent Auto 0.4 % (0-2); Eosinophils Absolute Auto 100 /uL (0-450); Eosinophils Percent Auto 2.1 % (2-4); Hemoglobin 13.2 g/dL (12.0-16.0); Lymphocytes Absolute Auto 2600 /uL (1100-4500); Mean Corpuscular HGB Conc 33.7 % (30-36); Mean Corpuscular Hemoglobin 32.5 PG (26-34); Mean Corpuscular Volume 96.3 fL (80-100); Monocytes Absolute Auto 300 /uL (0-900); Monocytes Percent Auto 4.8 % (3-14); Neutrophils Absolute Auto 3800 /uL (1500-7000); Neutrophils Percent Auto 54.7 % (50-75); Platelet Count 239 X10^3/uL (150-400); Red Blood Cell Count 4.05 X10^6/uL (4.0-5.2); Red Cell Distribution Width 12.8 % (11.6-14.8); White Blood Cell Count 6.9 X10^3/uL (4.5-11.0)
[2019-01-16 03:04] LABS: Thyroid Stimulating Hormone 1.89 uIU/mL (0.47-4.68)
[2019-01-16 06:49] VITALS: BP 121/76; PULSE 84; RESP 14; TEMP 36.7; O2SAT 96
--- NOTE | 2019-01-16 06:50 | PC.NURSE ---
Pt states, I don't feel good. Still reporting vague SI. C/O nausea, back pain. Dr Saucedo notified, orders received for IV toradol.
[2019-01-16] MEDS: KETOROLAC 60 MG/2 ML VIAL 30 MG IV (07:36)
[2019-01-16] MEDS: LORazepam 0.5 MG TABLET 1 MG PO ×2 (07:36→12:27)
[2019-01-16 07:45] VITALS: BP 124/68; PULSE 80; RESP 16; O2SAT 96
[2019-01-16 08:04] LABS: Lipase 190 U/L (23-300)
[2019-01-16] MEDS: PROPRANOLOL 10 MG TABLET 30 MG PO (08:34)
[2019-01-16 08:53] LABS: Appearance Urine UA CLEAR; Bilirubin Urine UA NEGATIVE (NEGATIVE); Color Urine UA YELLOW; Glucose Urine UA NEGATIVE (Negative); Ketones Urine UA TRACE (NEGATIVE); Leukocyte Esterase Urine UA NEGATIVE (NEGATIVE); Nitrite Urine UA NEGATIVE (Negative); Occult Blood Urine UA NEGATIVE (Negative); Protein Urine UA NEGATIVE (Negative); Urobilinogen Urine UA 0.2 E.U./dL (0.2)
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
--- NOTE | 2019-01-16 12:26 | PC.NURSE ---
Patient becoming increasingly agitated. Asking to leave or leave and go smoke. Patient has 2 visitors in the room from her work. Patient's states that she is hungry and states they have not been feeding me here. Breakfast and lunch trays were given to patient. She has eaten both of them. Snacks offered and provided. Pt's visitors brought in more food. Plastic spoons given with supervision. GUERO
[2019-01-16 14:02] VITALS: BP 118/61; PULSE 76; RESP 16; TEMP 36.8; O2SAT 98
--- NOTE | 2019-01-16 16:19 | PC.NURSE ---
report to kody murray rn at [facility]
--- NOTE | 2019-01-16 17:17 | PC.NURSE ---
I talked with Teresa from Social Work and told her I would call back [facility] and let them know we did not need a bed for this patient since [facility]. I called [facility], thanked them, and they were understanding that we no longer needed the bed.
== END 2019-01-16 16:21 ==
PROVIDERS: Emergency Medicine; Emergency Provider Emergency Medicine
DX: R45.851 Suicidal ideations (principal); F43.10 Post-traumatic stress disorder, unspecified
CPT/HCPCS: 36591; 80053; 80305; 80320; 81003; 81025; 83690; 84443; 85025; 96361; 96374; 96375; 96376; 99285; J1885; J2060; J2405